=== PATIENT | male | born 1960 | race Caucasian/White ===

== ENCOUNTER 2016-09-20 16:08 | Emergency (ER) | payer OTHER ==
[2016-09-20] MEDS ORDERED: IOPAMIDOL 300 (61%) 150 ML VIAL IV ONE (16:09)
[2016-09-20] MEDS ORDERED: HYDROMORPHONE HCL 0.5 MG/0.5 ML SYRINGE ONE ×4 (16:43→17:59)
[2016-09-20] MEDS ORDERED: ONDANSETRON 4 MG/2ML 2 ML VIAL ONE (16:43)
[2016-09-20 16:47] LABS: ABSOLUTE NEUTROPHIL COUNT 5.4 K/mm3 (1.8-7.7); BASO # 0.1 K/mm3 (0.0-0.2); BASO % 0.6 % (0.2-1.0); EOS # 0.2 (0.0-0.5); HEMATOCRIT 44.9 % (32.0-52.0); HEMOGLOBIN 14.9 gm/l (14.0-18.0); IMM NEUT% 0.4 % (0-1); LYMPH # 1.9 (1.0-4.8); LYMPH % 22.6 % (15-45); MEAN CELL VOLUME 94.7 fl (80.0-94.0); MEAN CORPUSCULAR HEMOGLOBIN 31.4 pg (27.0-31.0); MEAN CORPUSCULAR HGB CONC 33.2 g/dl (33.0-37.0); MEAN PLATELET VOLUME 9.4 fl (7.4-10.4); MONO # 0.7 (0.0-0.8); MONO % 8.8 % (4-12); NEUT % 65.6 % (43-75); PLATELET COUNT 443 K/mm3 (130-400); RED CELL DISTRIBUTION WIDTH 13.4 % (11.5-14.5)
[2016-09-20 16:54] LABS: PARTIAL THROMBOPLASTIN TIME 24.3 SECONDS (24.5-33.0); PROTHROMBIN TIME 10.5 SECONDS (9.3-11.4)
[2016-09-20] MEDS ORDERED: DIPHTH,PERTUSS(ACELL),TET VAC 0.5 ML VIAL IM V ONE (16:57)
--- NOTE | 2016-09-20 16:59 | CT ---
CT ABDOMEN AND PELVIS WITH CONTRAST HISTORY: Penetrating trauma. Scrotal/inguinal injury. TECHNIQUE: Following intravenous administration of 125 mL of Isovue-300, contiguous axial images were acquired from the lung bases to the ischial tuberosities. Oral contrast was not administered. COMPARISON:None. FINDINGS: LUNG BASES: Minor airspace abnormality of the right lower lobe, early pneumonia is possible. LIVER: No focal lesion. SPLEEN: No focal lesion. PANCREAS: No focal lesion. ADRENAL GLANDS: Soft tissue attenuation mass of the left adrenal gland, 2.3 x 2.3 cm in size. 2 separate soft tissue nodules on the right, 1.2 x 1.1 cm in size, and 2.6 x 1.3 cm in size. KIDNEYS: No focal lesion. No collecting system dilatation. GALLBLADDER: Present. BOWEL: Moderate fecal loading. Limited assessment of the distal colon due to decompression. No abnormal small bowel dilatation. APPENDIX: Nonenlarged. PELVIC ORGANS: Prostatomegaly. INGUINAL REGIONS: Evidence of soft tissue injury at the right inguinal region, seen just above the base of penis, extending medially to the right spermatic cord to the anterior scrotum small locules of gas. There is a high attenuation focus measures 9 x 6 x 10 mm in size, foreign body and focus of contrast extravasation are possible. Fatty inguinal hernia bilaterally. FREE FLUID: No gross free fluid identified. ABDOMINOPELVIC LYMPH NODES: No abnormally enlarged lymph nodes identified. ABDOMINAL AORTA: Atherosclerotic calcifications with borderline aneurysmal dilatation of the transhiatal segment, up to 3.1 cm in size. And ectasia of the infrarenal segment, up to 2.6 cm in size. OSSEOUS STRUCTURES: Evidence of thoracolumbar spondylosis. 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 Moderate to severe canal stenosis at the L3-4 and L4-5 levels. IMPRESSION: 1. Evidence of right hemiscrotal/inguinal injury, tract extending medial to the right spermatic cord to soft tissues overlying the base of penis. 1 cm hyperattenuating focus may reflect foreign body or extravasation of contrast. No obvious intrapelvic extension of injury. 2. Minor airspace abnormality at the right lower lobe bronchial wall thickening, suspicious for pneumonia. 3. 3 separate adrenal masses up to 2.6 cm in size, recommend dedicated multiphasic CT evaluation. 4. Evidence of aortic atherosclerotic disease, borderline aneurysmal dilatation of the transhiatal segment 5. Lumbar spondylosis with moderate to severe canal stenosis at the L3-4 and L4-5 levels. Findings discussed with Dr. Dailey of the Emergency Medicine clinical service on 09/20/2016 at 1655 hours.
[2016-09-20 17:03] LABS: I-STAT CREATININE 1.3 mg/dL (0.6-1.3)
[2016-09-20] MEDS ORDERED: CEFAZOLIN SODIUM 1 GRAM PREMIX 50 ML IV ONE (17:15)
[2016-09-20] MEDS ORDERED: METOPROLOL TARTRATE 1 MG/ML 5ML VIAL ONE ×2 (17:31→17:40)
[2016-09-20 22:33] LABS: CALCIUM 9.4 mg/dL (8.6-10.3)
== END 2016-09-20 18:40 | disposition short-term general hospital (02) ==
LOC: ED 16:08
DX: S39.848A Other specified injuries of external genitals, initial encounter (principal); I10 Essential (primary) hypertension; I50.9 Heart failure, unspecified; Z95.0 Presence of cardiac pacemaker; Z23 Encounter for immunization; W17.89XA Other fall from one level to another, initial encounter; Y92.89 Other specified places as the place of occurrence of the external cause; Y99.0 Civilian activity done for income or pay
CPT/HCPCS: 90715; 85025; 80048; 85730; 85610; 74177; 90471; 96375 ×2; 96376 ×2; 99285; 96374; 99291; J0690; J2405; Q9967; J1170 ×4